=== PATIENT | male | born 1985 | race Caucasian/White ===

== ENCOUNTER → 2016-11-09 | Outpatient (CLI) | payer BC, OTHER | LOC: RAD 11:18 | DX: M54.2 Cervicalgia (principal); M43.22 Fusion of spine, cervical region ==

== ENCOUNTER → 2018-07-03 | Outpatient (CLI) | payer OTHER | LOC: RAD 11:03 | DX: M54.16 Radiculopathy, lumbar region (principal) ==

== ENCOUNTER → 2018-12-18 | Outpatient (CLI) | payer OTHER | LOC: RAD 15:22 | DX: J90 Pleural effusion, not elsewhere classified (principal); R91.8 Other nonspecific abnormal finding of lung field ==

== ENCOUNTER → 2019-02-20 | Outpatient (CLI) | payer OTHER | LOC: CAT 15:30 | DX: R05 Cough (principal); R06.2 Wheezing; J98.4 Other disorders of lung ==